=== PATIENT | male | born 1950 | race Caucasian/White ===

== ENCOUNTER → 2018-03-22 | Outpatient (CLI) | payer OTHER | LOC: COL.RAD 09:33 | DX: I67.82 Cerebral ischemia (principal); H91.8X1 Other specified hearing loss, right ear | CPT/HCPCS: A9585 ==

== ENCOUNTER 2018-06-03 18:15 | Observation (INO) | payer OTHER, MEDICARE ==
[~2018-06-03] VITALS: Ht 182.9 cm; Wt 85.1 kg
[2018-06-03 18:42] VITALS: BP 135/73; PULSE 73; TEMP 97.4
[2018-06-03] MEDS ORDERED: NORCO 325 MG-51 TAB PO (19:22)
[2018-06-03] MEDS ORDERED: FLOMAX 0.40.4 MG/CAP PO (19:22)
[2018-06-03 20:00] VITALS: BP 135/58; PULSE 89
[2018-06-03 23:40] VITALS: BP 115/48; PULSE 78
[2018-06-03 23:54] VITALS: BP 131/68; PULSE 80; TEMP 98.5
[2018-06-04] VITALS (10 sets, daily range): BP systolic 111–128; BP diastolic 62–79; PULSE 74–83; TEMP 96.8–99.4
== END 2018-06-04 17:44 | disposition home or self-care (01) ==
LOC: SURG 18:15
DX: N20.1 Calculus of ureter (principal); G89.18 Other acute postprocedural pain
CPT/HCPCS: C1769; C2617; G0378; J0690; J1100; J1885; J2270; J2405; J2704; J2765; J3010; J7030; J7120; Q9967

== ENCOUNTER → 2023-10-01 | Outpatient (CLI) | payer MEDICARE, OTHER ==
[~2023-10-01] VITALS: Ht 182.9 cm; Wt 87.2 kg
[~2023-10-01] MED LIST: ALEVE 220MG220 MG; FLOMAX 0.40.4 MG/CAP PO; NORCO 325 MG-51 TAB PO; TYLENOL 500MG500 MG PO
[2023-10-01 06:30] VITALS: BP 144/79; PULSE 82; TEMP 97.9
--- NOTE | 2023-10-01 08:18 | NUR ---
DR WATSON CAME AND SPOKE TO THE PT AND HIS . QUESTION ASKED AND ANSWERED. PROCEDURE CANCELLED. INT DC'D INTACT AND WRAPPED WITH COBAN. PT TAKEN TO LOBBY
== END ==
LOC: COL.RAD 05:56
DX: R91.1 Solitary pulmonary nodule (principal)